=== PATIENT | male | born 1960 | race Caucasian/White ===

== ENCOUNTER 2017-06-14 09:35 | Emergency (ER) | payer BC ==
[2017-06-14 09:50] VITALS: BP 131/99
[2017-06-14] MEDS ORDERED: Sodium Chloride 0.9% 1,000 ML IV ONE (10:11)
[2017-06-14] MEDS ORDERED: Pantoprazole 40 MG Vial IVPUSH ONE (10:12)
[2017-06-14] MEDS ORDERED: Pantoprazole 80 MG in Sodium Chloride 0.9% 100 ML IV SCH (10:15)
--- NOTE | 2017-06-14 10:17 | EDM.PDOC ---
ED HPI GENERAL MEDICAL PROBLEM - General Chief Complaint: Gastrointestinal Problem Stated Complaint: UPPER GI BLEED Time Seen by Provider: 06/14/17 09:55 Source of Information: Reports: Patient History Limitations: Reports: No Limitations - History of Present Illness INITIAL COMMENTS - FREE TEXT/NARRATIVE: The patient states that he developed a burning sensation in his upper abdomen, along with bright red blood per rectum, about 06:00 this morning. He states that he had a single episode of a small amount of hematemesis this morning. The burning sensation in his abdomen has since turned into generalized cramps. He states that these symptoms are the same as when he has had upper bleeds in the past. The patient states that he had a gastric bypass at [facility] around 2012 or 2013, with a revision about 3 or 4 months later, also at [facility]. He states that he has had 11 or 12 upper GI bleed since his gastric bypass, most recently about one year ago. The patient states that he has a history of paroxysmal atrial fibrillation, and was on Coumadin until about one year ago. The patient is prescribed Carafate, excellent, and ranitidine, which he states he takes faithfully. He also has Gaviscon which he does not take frequently. The patient's Load Blocker at [facility] is Dr. sanchez. The patient does not recall the name of his Bariatric Surgeon. Abdominal Pain Score (Numeric/FACES): 5 - Related Data Allergies Allergy/AdvReac Type Severity Reaction Status Date / Time aspirin Allergy Hives Verified 05/21/14 12:50 Iodinated Contrast- Oral and Allergy Anaphylactic Verified 05/21/14 12:50 IV Dye Shock [Iodinated Contrast Media - IV Dye] venom-honey bee Allergy Throat Verified 05/21/14 12:50 [bee venom (honey bee)] swelling acetaminophen AdvReac Vomiting Verified 10/01/16 13:02 [From Darvocet-N 100] propoxyphene napsylate AdvReac Vomiting Verified 10/01/16 13:02 [From Darvocet-N 100] Home Meds: Home Meds Folic Acid 1 mg PO DAILY 05/21/14 [History] Furosemide [Lasix] 20 mg PO DAILY 05/21/14 [History] Lisinopril 40 mg PO DAILY 05/21/14 [History] Magnesium Oxide 400 mg PO BID 05/21/14 [History] Omeprazole 40 mg PO BIDAC 05/21/14 [History] Ondansetron HCl [Ondansetron] 4 mg PO ASDIRECTED PRN 05/21/14 [History] Potassium Chloride 20 meq PO BID 05/21/14 [History] amLODIPine [Norvasc] 5 mg PO DAILY 05/21/14 [History] Past Medical History Cardiovascular History: Reports: Afib (paroxysmal), CAD, Hypertension Gastrointestinal History: Reports: GI Bleed (upper, x 11 or 12 episodes), PUD Genitourinary History: Reports: Chronic Renal Insuffiency Hematologic History: Reports: Anemia - Past Surgical History Cardiovascular Surgical History: Reports: Other (See Below) (Coronary angiogram around 2011) GI Surgical History: Reports: Bariatric Procedure (Gastric bypass approximately 2012 or 2013, with revision 3-4 months later, both at [facility]) Social & Family History - Tobacco Use Smoking Status *Q: Former Smoker Years of Tobacco use: 16 Used Tobacco, but Quit: Yes Month Tobacco Last Used: 4 years - Alcohol Use Days Per Week of Alcohol Use: 0 - Recreational Drug Use Recreational Drug Use: No ED ROS GENERAL - Review of Systems Review Of Systems: ROS reveals no pertinent complaints other than HPI. ED EXAM, GI/ABD - Physical Exam Exam: See Below Exam Limited By: No Limitations General Appearance: Alert, WD/WN, No Apparent Distress Eyes: Bilateral: Normal Appearance, EOMI Ears: Normal External Exam, Hearing Grossly Normal Nose: Normal Inspection, No Blood Throat/Mouth: Normal Inspection, Normal Lips, Normal Voice, No Airway Compromise Head: Atraumatic, Normocephalic Neck: Normal Inspection, Full Range of Motion Respiratory/Chest: No Respiratory Distress, Lungs Clear, Normal Breath Sounds, No Accessory Muscle Use Cardiovascular: Normal Peripheral Pulses, No Gallop, No JVD, No Murmur, No Rub, Irregularly Irregular GI/Abdominal Exam: Normal Bowel Sounds, Soft, No Organomegaly, No Distention, No Abnormal Bruit, No Mass, Tender (Left upper quadrant only, which the patient states is chronic. Nontender elsewhere.) (Male) Exam: Deferred Rectal (Males) Exam: Normal Rectal Tone, Heme + Stool Back Exam: Normal Inspection, Full Range of Motion, NT Extremities: Normal Inspection, Normal Range of Motion, Normal Capillary Refill , Other (1-2+ pitting edema pretibially, bilaterally) Neurological: Alert, Oriented, Normal Cognition, No Motor/Sensory Deficits Psychiatric: Normal Affect Skin Exam: Warm, Dry, Intact, Normal Color, No Rash EKG INTERPRETATION EKG Date: 06/14/17 Time: 10:44 Rhythm: A-Fib Rate (Beats/Min): 90 Cardwell: RAD-Right Cardwell Deviation P-Wave: Absent QRS: Normal ST-T: Normal QT: Normal Comparison: No Change (05/21/2014) Course - Vital Signs Last Recorded V/S: Last Vital Signs Temp 36.2 C 06/14/17 09:47 Pulse 99 06/14/17 09:47 Resp 18 06/14/17 09:47 BP 131/99 H 06/14/17 09:47 Pulse Ox 99 06/14/17 09:47 Orthostatic Blood Pressure [ 75/60 Sitting] Orthostatic Blood Pressure [ 124/83 Supine] - Orders/Labs/Meds Orders: Active Orders 24 hr Category Date Time Status EKG Documentation Completion [RC] STAT Care 06/14/17 10:09 Active Orthostatic Vital Signs [RC] STAT Care 06/14/17 10:09 Active Pantoprazole [ProTONIX IV] 80 mg Med 06/14/17 10:15 Active Sodium Chloride 0.9% [Normal Saline] 100 ml IV Q10H Sodium Chloride 0.9% [Normal Saline] 1,000 ml Med 06/14/17 10:11 Active IV ONETIME NG [Nasogastric Orogastric Tube Insertion] [OM.PC] Oth 06/14/17 10:10 Ordered Routine Medication Orders Pantoprazole Sodium 80 mg/ (Sodium Chloride) 100 mls @ 10 mls/hr IV Q10H [facility] PRN Reason: 8 MG/HR Last Admin: 06/14/17 10:55 Dose: 8 mg/hr, 10 mls/hr Sodium Chloride (Normal Saline) 1,000 mls @ 999 mls/hr IV ONETIME ONE Stop: 06/14/17 11:11 Last Admin: 06/14/17 10:16 Dose: 999 mls/hr Labs: Laboratory Tests 06/14/17 06/14/17 06/14/17 Range/Units 09:58 09:58 09:58 WBC 9.63 H (4.23-9.07) K/mm3 RBC 4.06 L (4.63-6.08) M/mm3 Hgb 12.2 L (13.7-17.5) gm/L Hct 37.4 L (40.1-51.0) % MCV 92.1 (79.0-92.2) fl MCH 30.0 (25.7-32.2) pg MCHC 32.6 (32.2-35.5) g/dl RDW Std Deviation 54.5 H (35.1-43.9) fL Plt Count 291 (163-337) K/mm3 MPV 9.7 (9.4-12.3) fl Neutrophils % (Manual) 76 H (40-60) % Band Neutrophils % 0 (0-10) % Lymphocytes % (Manual) 21 (20-40) % Atypical Lymphs % 0 % Monocytes % (Manual) 0 L (2-10) % Eosinophils % (Manual) 2 (0.8-7.0) % Basophils % (Manual) 1 (0.2-1.2) Platelet Estimate Adequate RBC Morph Comment Normal PT 12.0 (8.0-13.0) SECONDS INR 1.09 APTT 23 (22-36) SECONDS Sodium 140 (136-145) mEq/L Potassium 4.2 (3.5-5.1) mEq/L Chloride 107 (98-107) mEq/L Carbon Dioxide 20 L (21-32) mEq/L Anion Gap 17.2 H (5-15) BUN 22 H (7-18) mg/dL Creatinine 1.1 (0.7-1.3) mg/dL Est Cr Clr Drug Dosing 72.31 mL/min Estimated GFR (MDRD) > 60 (>60) mL/min BUN/Creatinine Ratio 20.0 H (14-18) Glucose 148 H (74-106) mg/dL Calcium 7.9 L (8.5-10.1) mg/dL Total Bilirubin 0.7 (0.2-1.0) mg/dL AST 32 (15-37) U/L ALT 12 L (16-63) U/L Alkaline Phosphatase 47 (46-116) U/L Total Protein 6.2 L (6.4-8.2) g/dl Albumin 3.0 L (3.4-5.0) g/dl Globulin 3.2 gm/dL Albumin/Globulin Ratio 0.9 L (1-2) Lipase 192 (73-393) U/L Meds: Medications Generic Name Dose Route Start Last Admin Trade Name Freq PRN Reason Stop Dose Admin Pantoprazole Sodium 80 mg/ 100 mls @ 10 mls/hr 06/14/17 10:15 06/14/17 10:55 Sodium Chloride IV 8 mg/hr Q10H SAVANAH 10 mls/hr 8 MG/HR Administration Sodium Chloride 1,000 mls @ 999 mls/hr 06/14/17 10:11 06/14/17 10:16 Normal Saline IV 06/14/17 11:11 999 mls/hr ONETIME ONE Administration Discontinued Medications Generic Name Dose Route Start Last Admin Trade Name Freq PRN Reason Stop Dose Admin Sodium Chloride Confirm 06/14/17 10:18 Normal Saline Administered 06/14/17 10:19 Dose 1,000 mls @ as directed .ROUTE .STK-MED ONE Pantoprazole Sodium 80 mg 06/14/17 10:12 06/14/17 10:23 Protonix Iv IVPUSH 06/14/17 10:13 80 mg .BOLUS ONE Administration - Re-Assessments/Exams Free Text/Narrative Re-Assessment/Exam: 06/14/17 10:12 The patient is orthostatic. I have ordered 1 L normal saline bolus. I have ordered a NG tube to LIS, along with Protonix 80 mg IVP plus Protonix drip at 8 mg/hr. I have ordered blood work, however, the patient will require transfer to [facility]. 06/14/17 10:[address] [facility] at 10:20, and with Dr. [facility] from the ED at 10:25. Dr. [facility] accepts the patient for transfer to their facility. We will send the patient by helicopter, if available. 06/14/17 10:44 The NG tube has been placed, and is producing tawanna blood. Departure - Departure Time of Disposition: 10:25 Disposition: DC/Tfer to Acute Hospital 02 Condition: Serious Clinical Impression: Upper GI bleed - Discharge Information Referrals: PCP,Unknown [Primary Care Provider] - - My Orders Last 24 Hours: My Active Orders 06/14/17 10:09 EKG Documentation Completion [RC] STAT Orthostatic Vital Signs [RC] STAT 06/14/17 10:10 NG [Nasogastric Orogastric Tube Insertion] [OM.PC] Routine 06/14/17 10:11 Sodium Chloride 0.9% [Normal Saline] 1,000 ml IV ONETIME 06/14/17 10:15 Pantoprazole [ProTONIX IV] 80 mg Sodium Chloride 0.9% [Normal Saline] 100 ml IV Q10H - Assessment/Plan Last 24 Hours: My Active Orders 06/14/17 10:09 EKG Documentation Completion [RC] STAT Orthostatic Vital Signs [RC] STAT 06/14/17 10:10 NG [Nasogastric Orogastric Tube Insertion] [OM.PC] Routine 06/14/17 10:11 Sodium Chloride 0.9% [Normal Saline] 1,000 ml IV ONETIME 06/14/17 10:15 Pantoprazole [ProTONIX IV] 80 mg Sodium Chloride 0.9% [Normal Saline] 100 ml IV Q10H
[2017-06-14] MEDS ORDERED: Sodium Chloride 0.9% 1,000 ML ONE (10:18)
== END 2017-06-14 11:35 ==
LOC: JD.ED 09:35
DX: K92.2 Gastrointestinal hemorrhage, unspecified (principal); I12.9 Hypertensive chronic kidney disease with stage 1 through stage 4 chronic kidney disease, or unspecified chronic kidney disease; N18.9 Chronic kidney disease, unspecified; Z88.6 Allergy status to analgesic agent; Z91.041 Radiographic dye allergy status; Z88.8 Allergy status to other drugs, medicaments and biological substances; Z79.899 Other long term (current) drug therapy; Z87.891 Personal history of nicotine dependence
CPT/HCPCS: 36415; 80053; 83690; 85025; 85610; 85730; 93005; 96361; 96365; 96376; 99285; C9113; J7030; J7040; 93010

== ENCOUNTER 2019-08-27 18:27 | Emergency (ER) | payer BC ==
[2019-08-27 18:41] VITALS: PULSE 71
--- NOTE | 2019-08-27 18:48 | CT ---
Head CT Technique: Multiple axial sections through the brain were obtained. Intravenous contrast was not utilized. Comparison: Previous head CT study of 11/01/18. Findings: Old infarct is noted within both posterior frontal regions. Old right occipital lobe infarct is seen. Old inferior right cerebellar hemisphere infarct is noted. No other abnormal parenchymal densities are appreciated. There is no evidence of intracranial hemorrhage. No midline shift or mass-effect is appreciated. Ventricles along with basal cisterns and sulci over the convexities are within normal limits for the patient's age. No acute calvarial abnormality is seen on bone window settings. Visualized mastoid sinuses and visualized paranasal sinuses show nothing acute. Impression: 1. Multiple old infarcts as noted above. 2. No definite acute intracranial abnormality is seen. Note: If patient's symptoms are new, consider MRI to further evaluate. Diagnostic code #3 This report was dictated in MDT
--- NOTE | 2019-08-27 19:35 | EDM.PDOC ---
ED HPI GENERAL MEDICAL PROBLEM - General Chief Complaint: Neuro Symptoms/Deficits Stated Complaint: [facility] Time Seen by Provider: 08/27/19 18:27 - History of Present Illness INITIAL COMMENTS - FREE TEXT/NARRATIVE: 59-year-old male presents with acute left-sided weakness speech difficulty. The patient was normal as of 530 this evening [place] time. Shortly after this the patient experienced difficulty speaking and then shortly after that he noticed some weakness where he was having difficulty ambulating. The patient had some residual weakness following a stroke in October 2018. Unfortunately shortly after this the patient had a GI bleed and his Eliquis was stopped. When the patient arrives here he is having difficulty lifting his left leg against gravity. He can move his left arm but not very much she can move his elbow a little bit in his digits a little bit his shoulder was not working at all. He was having significant speech difficulty but he appears to be answering questions appropriately it just takes a little bit longer. The patient was rushed to CT immediately after arriving here and I did evaluate him immediately after the CT was done which was ultimately negative for acute changes but did show residual old strokes. - Related Data Allergies Allergy/AdvReac Type Severity Reaction Status Date / Time aspirin Allergy Hives Verified 08/27/19 18:41 Iodinated Contrast Media Allergy Anaphylactic Verified 08/27/19 18:41 [Iodinated Contrast Media - Shock IV Dye] venom-honey bee Allergy Throat Verified 08/27/19 18:41 [bee venom (honey bee)] swelling acetaminophen AdvReac Vomiting Verified 08/27/19 18:41 [From Darvocet-N 100] propoxyphene napsylate AdvReac Vomiting Verified 08/27/19 18:41 [From Darvocet-N 100] Home Meds: Home Meds Lisinopril 40 mg PO DAILY 05/21/14 [History] Metoprolol Tartrate 1 tab PO Q12H 06/14/17 [History] Ranitidine HCl [Zantac] 150 mg PO DAILY 06/14/17 [History] Dexlansoprazole [Dexilant] 60 mg PO DAILY 11/01/18 [History] Famotidine 40 mg PO BID 11/01/18 [History] Sucralfate 1 gm PO QID 11/01/18 [History] Tamsulosin [Tamsulosin 24 Hr] 0.4 mg PO DAILY 11/01/18 [History] Past Medical History Cardiovascular History: Reports: Afib, CAD, Hypertension Gastrointestinal History: Reports: GI Bleed, PUD Genitourinary History: Reports: Chronic Renal Insuffiency Neurological History: Reports: CVA Hematologic History: Reports: Anemia - Past Surgical History Cardiovascular Surgical History: Reports: Other (See Below) GI Surgical History: Reports: Bariatric Procedure Social & Family History - Tobacco Use Smoking Status *Q: Former Smoker Used Tobacco, but Quit: Yes Month/Year Tobacco Last Used: 7 months ago - Caffeine Use Caffeine Use: Reports: Coffee - Recreational Drug Use Recreational Drug Use: No ED ROS GENERAL - Review of Systems Review Of Systems: See Below Constitutional: Reports: No Symptoms HEENT: Reports: No Symptoms Respiratory: Reports: No Symptoms Cardiovascular: Reports: No Symptoms GI/Abdominal: Reports: No Symptoms. Denies: Black Stool, Bloody Stool, Constipation, Diarrhea, Nausea, Vomiting Musculoskeletal: Reports: No Symptoms Skin: Reports: No Symptoms Neurological: Reports: Pre-Existing Deficit (Has worsened significantly with the acute event). Denies: Headache Psychiatric: Reports: No Symptoms Hematologic/Lymphatic: Reports: No Symptoms Immunologic: Reports: No Symptoms ED EXAM, NEURO - Physical Exam Exam: See Below Exam Limited By: No Limitations General Appearance: Alert, No Apparent Distress Ears: Normal External Exam, Normal Canal, Hearing Grossly Normal, Normal TMs Nose: Normal Inspection, Normal Mucosa, No Blood Throat/Mouth: Normal Inspection, Normal Lips, Normal Gums, Normal Oropharynx, Normal Voice, No Airway Compromise Head Exam: Atraumatic, Normocephalic Neck: Normal Inspection, Supple, Non-Tender, Full Range of Motion Respiratory/Chest: No Respiratory Distress, Lungs Clear, Normal Breath Sounds Cardiovascular: Regular Rate, Rhythm, No Edema, No Murmur GI/Abdominal: Normal Bowel Sounds, Soft, Non-Tender Neurological: Other (Patient has significant weakness in his left upper extremity and lower extremity he cannot lift his left upper extremity against gravity he can move his digits and his elbow a little bit nothing with the shoulder. Left facial movement is minimal. This seemed to improve perhaps a little after his TPA.) Course - Vital Signs Last Recorded V/S: Last Vital Signs Temp 36.1 C 08/27/19 18:38 Pulse 71 08/27/19 18:38 Resp 16 08/27/19 18:38 BP 171/114 H 08/27/19 18:38 Pulse Ox 97 08/27/19 18:38 - Orders/Labs/Meds Orders: Active Orders 24 hr Category Date Time Status EKG Documentation Completion [RC] ASDIRECTED Care 08/27/19 18:31 Active Alteplase [Activase] 90 mg Med 08/27/19 20:00 Active Premix Bag 1 bag IV ONETIME Famotidine [Pepcid] Med 08/27/19 20:04 Once 40 mg IVPUSH ONETIME ONE diphenhydrAMINE [Benadryl] Med 08/27/19 20:04 Once 50 mg IVPUSH ONETIME ONE methylPREDNISolone Sod Succ [Solu-MEDROL] Med 08/27/19 20:04 Once 125 mg IVPUSH ONETIME ONE EKG 12 Lead [EK] Stat Ther 08/27/19 18:31 Ordered Medication Orders Diphenhydramine HCl (Benadryl) 50 mg IVPUSH ONETIME ONE Stop: 08/27/19 20:05 Famotidine (Pepcid) 40 mg IVPUSH ONETIME ONE Stop: 08/27/19 20:05 Alteplase, Recombinant 90 mg/ (Premix) 0 mls @ 0 mls/hr IV ONETIME ONE Stop: 08/27/19 20:59 Methylprednisolone Sodium Succinate (Solu-Medrol) 125 mg IVPUSH ONETIME ONE Stop: 08/27/19 20:05 Labs: Laboratory Tests 08/27/19 08/27/19 08/27/19 Range/Units 18:35 18:35 18:35 WBC 9.24 H (4.23-9.07) K/mm3 RBC 4.91 (4.63-6.08) M/mm3 Hgb 12.7 L (13.7-17.5) gm/dl Hct 40.8 (40.1-51.0) % MCV 83.1 D (79.0-92.2) fl MCH 25.9 (25.7-32.2) pg MCHC 31.1 L (32.2-35.5) g/dl RDW Std Deviation 57.7 H (35.1-43.9) fL Plt Count 264 (163-337) K/mm3 MPV 9.1 L (9.4-12.3) fl Neutrophils % (Manual) 78 H (40-60) % Band Neutrophils % 0 (0-10) % Lymphocytes % (Manual) 18 L (20-40) % Atypical Lymphs % 0 % Monocytes % (Manual) 4 (2-10) % Eosinophils % (Manual) 0 L (0.8-7.0) % Basophils % (Manual) 0 L (0.2-1.2) Platelet Estimate Adequate Poikilocytosis 1+ slight Anisocytosis 1+ slight Ovalocytes 1+ slight RBC Morph Comment Not Reportable PT 11.7 (9.7-12.0) SECONDS INR 1.08 APTT 24 (22-31) SECONDS Sodium 142 (136-145) mEq/L Potassium 3.8 (3.5-5.1) mEq/L Chloride 107 (98-107) mEq/L Carbon Dioxide 24 (21-32) mEq/L Anion Gap 14.8 (5-15) BUN 15 (7-18) mg/dL Creatinine 1.1 (0.7-1.3) mg/dL Est Cr Clr Drug Dosing 70.52 mL/min Estimated GFR (MDRD) > 60 (>60) mL/min BUN/Creatinine Ratio 13.6 L (14-18) Glucose 129 H (80-115) mg/dL POC Glucose (80-115) mg/dL Calcium 8.4 L (8.5-10.1) mg/dL Total Bilirubin 0.6 (0.2-1.0) mg/dL AST 22 (15-37) U/L ALT 15 L (16-63) U/L Alkaline Phosphatase 60 (46-116) U/L Troponin I < 0.017 (0.00-0.056) ng/mL Total Protein 6.8 (6.4-8.2) g/dl Albumin 3.3 L (3.4-5.0) g/dl Globulin 3.5 gm/dL Albumin/Globulin Ratio 0.9 L (1-2) 08/26/ Range/Units 18:35 WBC (4.23-9.07) K/mm3 RBC (4.63-6.08) M/mm3 Hgb (13.7-17.5) gm/dl Hct (40.1-51.0) % MCV (79.0-92.2) fl MCH (25.7-32.2) pg MCHC (32.2-35.5) g/dl RDW Std Deviation (35.1-43.9) fL Plt Count (163-337) K/mm3 MPV (9.4-12.3) fl Neutrophils % (Manual) (40-60) % Band Neutrophils % (0-10) % Lymphocytes % (Manual) (20-40) % Atypical Lymphs % % Monocytes % (Manual) (2-10) % Eosinophils % (Manual) (0.8-7.0) % Basophils % (Manual) (0.2-1.2) Platelet Estimate Poikilocytosis Anisocytosis Ovalocytes RBC Morph Comment PT (9.7-12.0) SECONDS INR APTT (22-31) SECONDS Sodium (136-145) mEq/L Potassium (3.5-5.1) mEq/L Chloride (98-107) mEq/L Carbon Dioxide (21-32) mEq/L Anion Gap (5-15) BUN (7-18) mg/dL Creatinine (0.7-1.3) mg/dL Est Cr Clr Drug Dosing mL/min Estimated GFR (MDRD) (>60) mL/min BUN/Creatinine Ratio (14-18) Glucose (80-115) mg/dL POC Glucose 127 H (80-115) mg/dL Calcium (8.5-10.1) mg/dL Total Bilirubin (0.2-1.0) mg/dL AST (15-37) U/L ALT (16-63) U/L Alkaline Phosphatase (46-116) U/L Troponin I (0.00-0.056) ng/mL Total Protein (6.4-8.2) g/dl Albumin (3.4-5.0) g/dl Globulin gm/dL Albumin/Globulin Ratio (1-2) Meds: Medications Generic Name Dose Route Start Last Admin Trade Name Freq PRN Reason Stop Dose Admin Diphenhydramine HCl 50 mg 08/27/19 20:04 Benadryl IVPUSH 08/27/19 20:05 ONETIME ONE Famotidine 40 mg 08/27/19 20:04 Pepcid IVPUSH 08/27/19 20:05 ONETIME ONE Alteplase, Recombinant 90 mg/ 0 mls @ 0 mls/hr 08/27/19 20:00 Premix IV 08/27/19 20:59 ONETIME ONE Methylprednisolone Sodium Succinate 125 mg 08/27/19 20:04 Solu-Medrol IVPUSH 08/27/19 20:05 ONETIME ONE Discontinued Medications Generic Name Dose Route Start Last Admin Trade Name Duane PRN Reason Stop Dose Admin Alteplase, Recombinant Confirm 08/27/19 19:10 Activase Administered 08/27/19 19:11 Dose 100 mg .ROUTE .[facility] - Re-Assessments/Exams Free Text/Narrative Re-Assessment/Exam: 08/27/19 19:35 Initially wanted to go to [facility] discussed it with Dr. Hoffmann this is [facility] who agreed the patient needs to come over after discussing it with Dr. Contreras the hospitalist they accepted. The neurologist strongly agreed with thrombolytic therapy this was initiated at approximately 715 [place] time. His last known normal was 531 time. [facility] called us back and informed as they could not accept the patient. Then called [facility] who is kind enough to accept the patient discussed the situation with Dr. Carver neurologist who would like us to get a CTA even without a perfusion study as long as it did not slow down the transfer. Will go through the emergency room at [facility] Case discussed with Dr. Chen in the emergency room who is kind enough to accept. The patient will go via [facility] flight. The patient was pretreated for CT about the time he left the department here with Benadryl 50 mg famotidine 40 mg and Solu-Medrol 125 mg anticipating CTA to be done at [facility]. I had a long discussion with the patient regarding the risks and benefits of thrombolytic therapy and the patient wished to proceed with this. He understands that the complications can be fatal and he also understands that roughly 30% of the people to get this treatment actually have benefit from this treatment. I stressed the importance of being absolutely certain he was not taking the Eliquis and he assures me that this was stopped shortly after his last stroke secondary to a GI bleed. Departure - Departure Time of Disposition: 19:30 Disposition: DC/Tfer to [facility] 02 Clinical Impression: Acute CVA (cerebrovascular accident) Atrial fibrillation Qualifiers: Atrial fibrillation type: chronic Qualified Code(s): I48.2 - Chronic atrial fibrillation - Discharge Information Referrals: PCP,Unknown [Ordering Only Provider] - Forms: ED Department Discharge Sepsis Event Note - Evaluation Sepsis Screening Result: No Definite Risk - Focused Exam Vital Signs: Vital Signs Temp Pulse Resp BP Pulse Ox 08/27/19 18:38 36.1 C 71 16 171/114 H 97 Date Exam was Performed: 08/27/19 Time Exam was Performed: 20:07 - My Orders Last 24 Hours: My Active Orders 08/27/19 18:31 EKG Documentation Completion [RC] ASDIRECTED EKG 12 Lead [EK] Stat 08/27/19 20:00 Alteplase [Activase] 90 mg Premix Bag 1 bag IV ONETIME 08/27/19 20:04 Famotidine [Pepcid] 40 mg IVPUSH ONETIME ONE diphenhydrAMINE [Benadryl] 50 mg IVPUSH ONETIME ONE methylPREDNISolone Sod Succ [Solu-MEDROL] 125 mg IVPUSH ONETIME ONE - Assessment/Plan Last 24 Hours: My Active Orders 08/27/19 18:31 EKG Documentation Completion [RC] ASDIRECTED EKG 12 Lead [EK] Stat 08/27/19 20:00 Alteplase [Activase] 90 mg Premix Bag 1 bag IV ONETIME 08/27/19 20:04 Famotidine [Pepcid] 40 mg IVPUSH ONETIME ONE diphenhydrAMINE [Benadryl] 50 mg IVPUSH ONETIME ONE methylPREDNISolone Sod Succ [Solu-MEDROL] 125 mg IVPUSH ONETIME ONE
[2019-08-27] MEDS ORDERED: Alteplase 90 MG in Premix Bag 1 BAG IV ONE (20:00)
[2019-08-27] MEDS ORDERED: methylPREDNISolone Sodium Succinate 125 MG/2 ML SDV IVPUSH ONE (20:04)
[2019-08-27] MEDS ORDERED: diphenhydrAMINE 50 MG/ML SDV IVPUSH ONE (20:04)
[2019-08-27] MEDS ORDERED: Famotidine 20 MG/2 ML SDV IVPUSH ONE (20:04)
[2019-08-27] MEDS ORDERED: Famotidine 20 MG/2 ML SDV ONE (20:10)
[2019-08-27 21:48] VITALS: BP 173/113
== END 2019-08-27 20:40 ==
LOC: JD.ED 18:27
DX: I63.9 Cerebral infarction, unspecified (principal); I48.20 Chronic atrial fibrillation, unspecified; I25.10 Atherosclerotic heart disease of native coronary artery without angina pectoris; I12.9 Hypertensive chronic kidney disease with stage 1 through stage 4 chronic kidney disease, or unspecified chronic kidney disease; D63.1 Anemia in chronic kidney disease; N18.9 Chronic kidney disease, unspecified; Z88.6 Allergy status to analgesic agent; Z91.041 Radiographic dye allergy status; Z91.030 Bee allergy status; Z88.8 Allergy status to other drugs, medicaments and biological substances; Z79.899 Other long term (current) drug therapy; Z87.891 Personal history of nicotine dependence
CPT/HCPCS: 36415; 37195; 70450; 70450-26; 80053; 82962; 84484; 85007; 85027; 85610; 85730; 93005; 93010; 96374; 96375; 99285; 99285-25; J1200; J2930; J2997; J3490